=== PATIENT | female | born 1940 | race Caucasian/White ===

== ENCOUNTER 2025-05-13 13:35 | Emergency (ER) | payer MEDICARE ==
[~2025-05-13] VITALS: Ht 154.9 cm; Wt 51.7 kg
[2025-05-13] MEDS ORDERED: TRANEXAMIC ACID 1,000 MG/10 ML VIAL T ONE (14:10)
[2025-05-13] MEDS ORDERED: ELIQUIS2.5 M1 PO (14:19)
[2025-05-13] MEDS ORDERED: FUROSEMIDE20 M1 PO (14:20)
[2025-05-13] MEDS ORDERED: CLOPIDOGREL75 MG PO (14:20)
[2025-05-13] MEDS ORDERED: LOSARTAN POTASS50 M1 PO (14:20)
[2025-05-13] MEDS ORDERED: DIGOXIN125 MCG PO (14:20)
[2025-05-13] MEDS ORDERED: ASPIRIN CHEWABL81 MG PO (14:20)
[2025-05-13] MEDS ORDERED: TOPROL XL25 MG PO (14:21)
[2025-05-13] MEDS ORDERED: SILVER NITRATE APPLICATOR 1 EACH APP T ONE ×2 (14:45→15:10)
== END 2025-05-13 16:08 | disposition home or self-care (01) ==
LOC: ED 13:35
DX: S81.812A Laceration without foreign body, left lower leg, initial encounter (principal); I25.10 Atherosclerotic heart disease of native coronary artery without angina pectoris; I10 Essential (primary) hypertension; I48.91 Unspecified atrial fibrillation; Z86.711 Personal history of pulmonary embolism; Z95.5 Presence of coronary angioplasty implant and graft; Z88.0 Allergy status to penicillin; Z79.899 Other long term (current) drug therapy; Z79.82 Long term (current) use of aspirin; W22.09XA Striking against other stationary object, initial encounter; Y93.89 Activity, other specified; Y92.89 Other specified places as the place of occurrence of the external cause; Y99.8 Other external cause status